=== PATIENT | male | born 1975 | race Caucasian/White ===

== ENCOUNTER 2020-05-01 11:03 | Day surgery (SDC) | payer OTHER ==
[~2020-05-01] VITALS: Ht 182.9 cm; Wt 92.2 kg
[~2020-05-01 11:03] MED LIST: CBD PO; CHOL10003 PO; FENTANYL PF 100 MCG/2ML ONE; MAGN250T9 PO; MIDAZOLAM 1 MG/ML, 2ML ONE; [UNRECOGNIZED DRUG - OTHER] PO
[2020-05-01] MEDS ORDERED: LACTATED RINGERS 1,000 ML IV SCH (11:30)
[2020-05-01] MEDS ORDERED: CHLORHEXIDINE 15 ML UDC MM ONE (11:30)
[2020-05-01 11:32] VITALS: BP 137/73
[2020-05-01] MEDS ORDERED: REMIFENTANIL 1 MG ONE ×2 (12:24→12:45)
[2020-05-01] MEDS ORDERED: ONDANSETRON 2MG/ML, 2ML ONE ×2 (12:57→15:12)
[2020-05-01] MEDS ORDERED: LIDOCAINE PF 2%, 5ML ONE (12:57)
[2020-05-01] MEDS ORDERED: PROPOFOL 10 MG/ML, 50ML ONE (12:57)
[2020-05-01] MEDS ORDERED: PROPOFOL 10 MG/ML, 20ML ONE (12:57)
[2020-05-01] MEDS ORDERED: CEFAZOLIN 1,000 MG ONE (12:57)
[2020-05-01] MEDS ORDERED: DEXAMETHASONE 4 MG/ML, 1ML ONE (12:57)
[2020-05-01] MEDS ORDERED: BUPIVACAINE/EPI 0.5% 1:200K ONE (13:18)
[2020-05-01] MEDS ORDERED: hydrALAzine 20 MG/ML, 1ML IV PRN (14:30)
[2020-05-01] MEDS ORDERED: LABETALOL 5MG/ML, 20ML IV PRN (14:30)
[2020-05-01] MEDS ORDERED: HYDROmorphone 1 MG/ML, 1ML INJ IVPush PRN (14:30)
[2020-05-01] MEDS ORDERED: PROMETHAZINE 12.5 MG SUPP PR PRN (14:30)
[2020-05-01] MEDS ORDERED: EPHEDRINE 50 MG/ML, 1ML IVPush PRN (14:30)
[2020-05-01] MEDS ORDERED: MEPERIDINE/PF 25MG/0.5ML IVPush PRN (14:30)
[2020-05-01] MEDS ORDERED: HALOPERIDOL 5 MG/ML IV PRN (14:30)
[2020-05-01] MEDS ORDERED: METOCLOPRAMIDE 5 MG/ML, 2ML IVPush PRN (14:30)
[2020-05-01] MEDS ORDERED: ONDANSETRON 2MG/ML, 2ML IVPush PRN (14:30)
[2020-05-01] MEDS ORDERED: ACETAMINOPHEN 325 MG TABLET PO PRN (14:30)
[2020-05-01] MEDS ORDERED: DIAZEPAM 5 MG/ML, 2ML IVPush PRN (14:30)
[2020-05-01] MEDS ORDERED: FENTANYL PF 100 MCG/2ML ONE ×2 (15:01→15:39)
[2020-05-01] MEDS: FENTANYL PF 100 MCG/2ML IV PRN ×3 (15:25→16:11)
[2020-05-01] MEDS ORDERED: OXYcodone 5 MG/5 ML ORAL.SOL UDC ONE (15:39)
[2020-05-01] MEDS: OXYcodone 5 MG/5 ML ORAL.SOL UDC PO PRN ×2 (15:48→16:01)
== END 2020-05-01 18:05 | disposition home or self-care (01) ==
LOC: OUT 11:03
PROVIDERS: ATTEND Surgery
DX: C73 Malignant neoplasm of thyroid gland (principal); E04.1 Nontoxic single thyroid nodule; Z91.040 Latex allergy status; Z90.410 Acquired total absence of pancreas; Z79.899 Other long term (current) drug therapy; Z20.828 Contact with and (suspected) exposure to other viral communicable diseases; Z88.8 Allergy status to other drugs, medicaments and biological substances; Z98.890 Other specified postprocedural states
CPT/HCPCS: 36415; 60252; 83970; 88307; 88331; C1760; J0690; J1100; J2250; J2405; J2704; J3010; J7120; U0003